=== PATIENT | female | born 1970 | race Caucasian/White ===

== ENCOUNTER 2018-01-04 13:57 | Emergency (ER) | END 2018-01-04 19:09 | disposition home or self-care (01) ==

== ENCOUNTER 2019-01-07 13:33 | Emergency (ER) | payer MEDICAID, OTHER ==
[~2019-01-07] VITALS: Ht 160 cm; Wt 88.0 kg
[2019-01-07 13:36] VITALS: BP 178/81; PULSE 92; RESP 18; Ht 160 cm; Wt 88.0 kg
[2019-01-07] MEDS ORDERED: DEXAMETHASONE 10 MG/ML 1 ML INJ IM ONE (15:30)
[2019-01-07] MEDS ORDERED: HYDROCODONE/APAP (5/325) TAB PO ONE (15:30)
[2019-01-07] MEDS ORDERED: METH750T93 PO (17:30)
[2019-01-07] MEDS ORDERED: ACET-141 PO (17:30)
--- NOTE | 2019-01-07 17:32 | ERD ---
ER Documentation Chief Complaint Chief Complaint back pain since last night after picking up something from the floor ROS All systems reviewed and are negative except as per history of present illness. Medications Home Meds Active Scripts Methocarbamol* (Robaxin*) 750 Mg Tablet, 750 MG PO TID PRN for MUSCLE SPASMS, #30 TAB Prov:LEONEL URBINA DO 01/07/19 Acetaminophen* (Acetaminophen*) 500 MG Extra Strength Tablet, 500 MG PO Q4H PRN for PAIN AND OR ELEVATED TEMP, #30 TAB Prov:LEONEL URBINA DO 01/07/19 Allergies Allergies: Coded Allergies: No Known Allergy (Unverified , 01/04/18) PMhx/Soc History of Surgery: Yes () Anesthesia Reaction: No Hx Neurological Disorder: No Hx Respiratory Disorders: No Hx Cardiac Disorders: Yes (HTN) Hx Psychiatric Problems: No Hx Alcohol Use: Yes (twice a month) Hx Substance Use: No Hx Tobacco Use: No Smoking Status: Never smoker Physical Exam Vitals Vital Signs Date Temp Pulse Resp B/P (MAP) Pulse Ox O2 O2 Flow FiO2 Time Delivery Rate 01/07/19 98.4 92 18 178/81 96 13:36 (113) Physical Exam Const: No acute distress Head: Atraumatic Eyes: Normal Conjunctiva ENT: Normal External Ears, Nose and Mouth. Neck: Full range of motion. No meningismus. Resp: Clear to auscultation bilaterally Cardio: Regular rate and rhythm, no murmurs Abd: Soft, non tender, non distended. Normal bowel sounds Skin: No petechiae or rashes Back: No midline or flank tenderness Ext: No cyanosis, or edema Neur: Awake and alert Psych: Normal Mood and Affect Results 24 hrs Current Medications Medications Dose Sig/Sukhwinder Start Time Status Last (Trade) Ordered Route PRN Stop Time Admin Dose Reason Admin 10 mg ONCE ONCE 01/07/19 DC 01/07/19 Dexamethasone IM 15:30 15:13 (Decadron) 01/07/19 15:31 1 tab ONCE ONCE 01/07/19 DC 01/07/19 Acetaminophen PO 15:30 15:13 / 01/07/19 15:31 Hydrocodone Bitart ([place] (5/325)) Departure Diagnosis: Primary Impression: Back pain Back pain location: low back pain Chronicity: acute Back pain laterality: right Sciatica presence: with sciatica Sciatica laterality: sciatica of right side Qualified Codes: M54.41 - Lumbago with sciatica, right side Condition: Fair Patient Instructions: Back Pain W/ Sciatica Referrals: [facility] YOU HAVE RECEIVED A MEDICAL SCREENING EXAM AND THE RESULTS INDICATE THAT YOU DO NOT HAVE A CONDITION THAT REQUIRES URGENT TREATMENT IN THE EMERGENCY DEPARTMENT. FURTHER EVALUATION AND TREATMENT OF YOUR CONDITION CAN WAIT UNTIL YOU ARE SEEN IN YOUR DOCTORS OFFICE WITHIN THE NEXT 1-2 DAYS. IT IS YOUR RESPONSIBILITY TO MAKE AN APPOINTMENT FOR FOLOW-UP CARE. IF YOU HAVE A PRIMARY DOCTOR --you should call your primary doctor and schedule an appointment IF YOU DO NOT HAVE A PRIMARY DOCTOR YOU CAN CALL OUR PHYSICIAN REFERRAL HOTLINE AT IF YOU CAN NOT AFFORD TO SEE A PHYSICIAN YOU CAN CHOSE FROM THE FOLLOWING [facility] [address] [facility] [address] [facility] [address] [facility] [address] [facility] [address] [facility] [facility] [address] Additional Instructions: Llame al doctor ABIDA y sergio joselito JONAS PARA DENTRO DE 1-2 ALFARO.Dgale a la secretaria que nosotros le instruimos hacer esta jonas.Avise o llame si padilla condicin se empeora antes de la jonas. Regresa aqui si peor o no mejor. recomendar compresiones tibias 3 veces al LEONEL Michel DO Jan 07, 2019 17:32
== END 2019-01-07 17:42 | disposition home or self-care (01) ==
LOC: FTE 13:33
DX: M54.41 Lumbago with sciatica, right side (principal); I10 Essential (primary) hypertension
CPT/HCPCS: 72100; J1100; Z7610; 96372

== ENCOUNTER 2019-02-20 15:24 | Emergency (ER) | payer OTHER ==
[~2019-02-20] VITALS: Ht 160 cm; Wt 87.2 kg
[~2019-02-20 15:24] MED LIST: ACET-141 PO; IBUP-1542 PO; METH750T93 PO
[2019-02-20 15:30] VITALS: Ht 160 cm; Wt 87.2 kg
[2019-02-20] MEDS ORDERED: KETOROLAC 30 MG INJ IM STA (18:47)
[2019-02-20 20:13] VITALS: BP 134/69; PULSE 74; RESP 18
== END 2019-02-20 20:13 | disposition home or self-care (01) ==
LOC: FTE 15:24
DX: M54.42 Lumbago with sciatica, left side (principal); I10 Essential (primary) hypertension
CPT/HCPCS: 81025; 96372; J1885; Z7502